=== PATIENT | female | born 1990 | race Caucasian/White ===

== ENCOUNTER 2019-04-04 12:03 | Emergency (ER) | payer SELFPAY ==
[~2019-04-04] VITALS: Ht 154 cm; Wt 120.8 kg
[~2019-04-04 12:03] MED LIST: DOXY100C2 PO; IBP800T PO
--- NOTE | 2019-04-04 12:29 | ED Abdominal Pain ---
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 Fever was 100.1 at home. States the last time she urinated she had some clots in toilet. Denies urinary symptoms but states urine is darker than normal. Sepsis Screen: No Definite Risk Source of Information: Patient Exam Limitations: No Limitations History of Present Illness Date Seen by Provider: Apr 04, 2019 Time Seen by Provider: 12:27 Initial Comments Patient is 22 weeks . This is her sixth . She has 5 children at home. She has had a care and a normal ultrasound so far. She compl ains of left lower quadrant sharp stabbing pain for the past 2-3 days. She also complains of a cough productive of yellow sputum. She vomited last night. No fevers or chills. Allergies and Home Medications Allergies Coded Allergies: No Known Drug Allergies (Unverified , 04/04/19) Patient Home Medication List Home Medication List Reviewed: Yes Review of Systems Review of Systems Constitutional: malaise Respiratory: Cough Cardiovascular: No Symptoms Reported Gastrointestinal: Vomiting Musculoskeletal: back pain Skin: no symptoms reported Psychiatric/Neurological: No Symptoms Reported All Other Systems Reviewed Negative Unless Noted: Yes Past Kxuzglg-Wnhoby-Xwfcvm Hx Patient Social History Alcohol Use: Denies Use Recreational Drug Use: No Smoking Status: Current Someday Smoker 2nd Hand Smoke Exposure: No Recent Foreign Travel: No Contact w/Someone Who Travel: No Recent Infectious Disease Expo: No Recent Hopitalizations: No Physical Abuse: No Sexual Abuse: No Mistreated: No Fear: No Seasonal Allergies Seasonal Allergies: No Past Medical History Surgeries: Yes (D & C; hernia repair; ) Section Respiratory: No Cardiac: No Neurological: No Genitourinary: No Gastrointestinal: No Musculoskeletal: No Endocrine: No HEENT: No Cancer: No Psychosocial: No Integumentary: No Physical Exam Vital Signs Vital Signs - First Documented 04/04/19 12:08 Temp 37.4 Pulse 100 Resp 16 B/P (MAP) 134/82 (99) Pulse Ox 96 Capillary Refill : Less Than 3 Seconds Height/Weight/BMI Height: '" Weight: lbs. oz. kg; 50.00 BMI Method: General Appearance: WD/WN, no apparent distress HEENT: pharynx normal Neck: supple Respiratory: lungs clear, normal breath sounds Cardiovascular: regular rate, rhythm, no edema Gastrointestinal: non tender, soft; No guarding, No rebound; other (obese gravid uterus) Extremities: non-tender, normal inspection, no pedal edema Neurologic/Psychiatric: alert, normal mood/affect Progress/Results/Core Measures Results/Orders Lab Results Laboratory Tests Test 04/04/19 12:08 04/04/19 12:41 Range/Units Urine Color YELLOW Urine Clarity CLEAR Urine pH 7.0 5-9 Urine Specific [place] 1.020 1.016-1.022 Urine Protein NEGATIVE NEGATIVE Urine Glucose (UA) NEGATIVE NEGATIVE Urine Ketones NEGATIVE NEGATIVE Urine Nitrite NEGATIVE NEGATIVE Urine Bilirubin NEGATIVE NEGATIVE Urine Urobilinogen 0.2 NORMAL MG/DL Urine Leukocyte Esterase NEGATIVE NEGATIVE Urine RBC (Auto) NEGATIVE NEGATIVE Urine RBC NONE /HPF Urine WBC 0-2 /HPF Urine Squamous Epithelial Cells 25-50 H /HPF Urine Crystals NONE /LPF Urine Bacteria TRACE /HPF Urine Casts NONE /LPF Urine Mucus NEGATIVE /LPF Urine Culture Indicated NO White Blood Count 10.3 4.3-11.0 10^3/uL Red Blood Count 3.81 L 4.35-5.85 10^6/uL Hemoglobin 10.8 L 11.5-16.0 G/DL Hematocrit 32 L 35-52 % Mean Corpuscular Volume 85 80-99 FL Mean Corpuscular Hemoglobin 28 25-34 PG Mean Corpuscular Hemoglobin Concent 33 32-36 G/DL Red Cell Distribution Width 13.8 10.0-14.5 % Platelet Count 271 130-400 10^3/uL Mean Platelet Volume 10.0 7.4-10.4 FL Neutrophils (%) (Auto) 86 H 42-75 % Lymphocytes (%) (Auto) 8 L 12-44 % Monocytes (%) (Auto) 4 0-12 % Eosinophils (%) (Auto) 2 0-10 % Basophils (%) (Auto) 0 0-10 % Neutrophils # (Auto) 8.8 H 1.8-7.8 X 10^3 Lymphocytes # (Auto) 0.8 L 1.0-4.0 X 10^3 Monocytes # (Auto) 0.4 0.0-1.0 X 10^3 Eosinophils # (Auto) 0.2 0.0-0.3 10^3/uL Basophils # (Auto) 0.0 0.0-0.1 10^3/uL Neutrophils % (Manual) 67 % Lymphocytes % (Manual) 9 % Monocytes % (Manual) 3 % Eosinophils % (Manual) 1 % Band Neutrophils 20 % Hypochromasia 1+ Blood Morphology Comment Sodium Level 135 135-145 MMOL/L Potassium Level 4.0 3.6-5.0 MMOL/L Chloride Level 102 98-107 MMOL/L Carbon Dioxide Level 19 L 21-32 MMOL/L Anion Gap 14 5-14 MMOL/L Blood Urea Nitrogen 7 7-18 MG/DL Creatinine 0.41 L 0.60-1.30 MG/DL Estimat Glomerular Filtration Rate > 60 BUN/Creatinine Ratio 17 Glucose Level 104 70-105 MG/DL Calcium Level 8.4 L 8.5-10.1 MG/DL Corrected Calcium 9.2 8.5-10.1 MG/DL Total Bilirubin 0.2 0.1-1.0 MG/DL Aspartate Amino Transf (AST/SGOT) 18 5-34 U/L Alanine Aminotransferase (ALT/SGPT) 30 0-55 U/L Alkaline Phosphatase 100 40-136 U/L Total Protein 6.1 L 6.4-8.2 GM/DL Albumin 3.0 L 3.2-4.5 GM/DL My Orders Orders - JOE SIDHU MD Urinalysis (04/04/19 12:18) Comprehensive Metabolic Panel (04/04/19 12:29) Cbc With Automated Diff (04/04/19 12:29) Manual Differential (04/04/19 12:41) Vital Signs/I&O 04/04/19 12:08 Temp 37.4 Pulse 100 Resp 16 B/P (MAP) 134/82 (99) Pulse Ox 96 Blood Pressure Mean: 99 Progress Progress Note : Time: 13:33 Progress Note Symptoms suggestive of viral illness. She may have had some vaginal bleeding. Older symptoms worsened or she develop worsening abdominal pain she may need ultrasound results available here. Advised rest FLUIDS and no intercourse. Departure Impression Primary Impression: Upper respiratory infection Additional Impression: Abdominal pain affecting Disposition: 01 HOME, SELF-CARE Condition: Stable Transfer Time Spoke to Accepting Phy: 13:34 Departure-Patient Inst. Decision time for Depature: 13:34 Referrals: JORDAN WALLS DO (PCP/Family) Primary Care Physician Patient Instructions: - The Fifth Month Add. Discharge Instructions: Rest drink plenty of fluids. No intercourse. See Dr. Walls Saturday for recheck. Return to hospital if symptoms worsen, YOU may need an ultrasound. All discharge instructions reviewed with patient and/or family. Voiced understanding. JOE SIDHU MD Apr 04, 2019 12:29
[2019-04-04 12:53] LABS: BACTERIA,URINE TRACE /HPF; BILIRUBIN,URINE NEGATIVE (NEGATIVE); CLARITY,URINE CLEAR; COLOR,URINE YELLOW; GLUCOSE, URINE (UA) NEGATIVE (NEGATIVE); KETONES,URINE NEGATIVE (NEGATIVE); LEUKOCYTE ESTERASE ,URINE NEGATIVE (NEGATIVE); NITRITE,URINE NEGATIVE (NEGATIVE); PROTEIN,URINE NEGATIVE (NEGATIVE); SQUAMOUS EPITHELIAL CELL,UR 25-50 /HPF; UROBILINOGEN,URINE 0.2 MG/DL (NORMAL); WBC,URINE 0-2 /HPF
[2019-04-04 12:54] LABS: HEMATOCRIT 32 % (35-52); HEMOGLOBIN 10.8 G/DL (11.5-16.0); LYMPHOCYTES % (AUTO) 8 % (12-44); MEAN CORPUSCULAR HEMOGLOBIN 28 PG (25-34); MEAN CORPUSCULAR HGB CONC 33 G/DL (32-36); MEAN CORPUSCULAR VOLUME 85 FL (80-99); MONOCYTES % (AUTO) 4 % (0-12); NEUTROPHILS % (AUTO) 86 % (42-75); PLATELET COUNT 271 10^3/uL (130-400); RED CELL DISTRIBUTION WIDTH 13.8 % (10.0-14.5); WHITE BLOOD COUNT 10.3 10^3/uL (4.3-11.0)
[2019-04-04 12:55] LABS: BASOPHILS % (AUTO) 0 % (0-10); EOSINOPHILS # (AUTO) 0.2 10^3/uL (0.0-0.3); EOSINOPHILS % (AUTO) 2 % (0-10); LYMPHOCYTES # (AUTO) 0.8 X 10^3 (1.0-4.0); MONOCYTES # (AUTO) 0.4 X 10^3 (0.0-1.0); NEUTROPHILS # (AUTO) 8.8 X 10^3 (1.8-7.8)
[2019-04-04 13:16] LABS: BAND NEUTROPHILS 20 %; EOSINOPHILS % (MANUAL) 1 %; LYMPHOCYTES % (MANUAL) 9 %; MONOCYTES % (MANUAL) 3 %; NEUTROPHILS % (MANUAL) 67 %
[2019-04-04 13:17] LABS: CARBON DIOXIDE 19 MMOL/L (21-32); CHLORIDE 102 MMOL/L (98-107); HYPOCHROMASIA 1+; SODIUM 135 MMOL/L (135-145)
[2019-04-04 13:18] LABS: ALANINE AMINOTRANSFERASE 30 U/L (0-55); ALKALINE PHOSPHATASE 100 U/L (40-136); BILIRUBIN,TOTAL 0.2 MG/DL (0.1-1.0); BUN/CREATININE RATIO 17; CALCIUM 8.4 MG/DL (8.5-10.1); CREATININE SERUM 0.41 MG/DL (0.60-1.30); GFR ESTIMATED > 60; GLUCOSE 104 MG/DL (70-105); TOTAL PROTEIN 6.1 GM/DL (6.4-8.2)
[2019-04-04 13:44] VITALS: BP 134/82
== END 2019-04-04 13:52 | disposition home or self-care (01) ==
LOC: ER FS 12:06 → MERGE 12:06 → ER FS 13:52
DX: O99.512 Diseases of the respiratory system complicating pregnancy, second trimester (principal); J06.9 Acute upper respiratory infection, unspecified; O26.892 Other specified pregnancy related conditions, second trimester; R10.32 Left lower quadrant pain; O99.332 Smoking (tobacco) complicating pregnancy, second trimester; F17.200 Nicotine dependence, unspecified, uncomplicated; Z3A.22 22 weeks gestation of pregnancy
CPT/HCPCS: 36415; 80053; 81000; 85007; 85027

== ENCOUNTER 2020-10-20 17:07 | Emergency (ER) | payer MEDICAID ==
[~2020-10-20] VITALS: Ht 154.9 cm; Wt 113.6 kg
--- NOTE | 2020-10-20 17:34 | ED Back Pain ---
General Chief Complaint: Back Problems Stated Complaint: UPPER BACK PAIN Source of Information: Patient History of Present Illness Date Seen by Provider: Oct 20, 2020 Time Seen by Provider: 17:09 Initial Comments 30 yo female presenting with sudden onset of pain to right posterior back/chest around scapula. She has no known injury to her chest wall. She woke up with the pain this morning. She has recently been coughing more due to some allergies and a recent sinus infection. She took a 3-day course of antibiotics from urgent care. She has had some improvement after seeing a chiropractor earlier today. They told her that a rib was out of place. After adjustment she was feeling better with no pain for 2 to 3 hours. However as she was doing her normal activities the pain came back. She is not taking any medication for it. She was concerned that there might be something going on with her lungs like a pneumonia or some other condition that was causing the pain so she came to be evaluated. She was concerned but no x-rays have been done when she saw the chiropractor. She does not feel that the rib is fractured but again wanted to have further evaluation for her symptoms. Location: Other (Right side of posterior chest between spine and scapula) Timing/Duration: 12 Hours Severity: Severe Pain/Injury Location: Chest (Right posterior chest wall) Radiation: Other (Right shoulder and upper arm) Method of Injury: Other (No known specific trauma but has been coughing more) Modifying Factors: Worse With Movement (Arm and shoulder movement on the right makes it worse); Improves With Other (Chiropractic adjustment helps for a few hours) Associated Symptoms: muscle spasms; No fever, No weakness, No numbness in legs/feet, No tingling in legs/feet, No sensory/motor loss, No lower back pain, No loss of bladder control, No loss of bowel control Allergies and Home Medications Allergies Coded Allergies: No Known Drug Allergies (Unverified , 07/31/19) Home Medications Baclofen 10 Mg Tablet, 10 MG PO TID PRN for MUSCLE SPASMS Prescribed by: MAXINE GARZA on 10/20/201831 Ibuprofen 800 Mg Tablet, 800 MG PO Q8H PRN for PAIN Prescribed by: MAXINE GARZA on 10/20/201831 Patient Home Medication List Home Medication List Reviewed: Yes Review of Systems Constitutional: chills; No diaphoresis, No dizziness, No fever, No malaise EENTM: nose congestion; No epistaxis Respiratory: cough (Smoker's cough as well as allergies); No hemoptysis, No short of breath, No stridor, No wheezing Cardiovascular: see HPI Gastrointestinal: no symptoms reported Genitourinary: no symptoms reported Musculoskeletal: see HPI Skin: No rash Psychiatric/Neurological: Denies Headache, Denies Numbness, Denies Paresthesia Past Xybggyi-Aujgpq-Vvyxmd Hx Past Med/Social Hx: Reviewed Nursing Past Med/Soc Hx Patient Social History Alcohol Use: Occasionally Uses Smoking Status: Current Everyday Smoker Type Used: Cigarettes 2nd Hand Smoke Exposure: No Recent Hopitalizations: No Seasonal Allergies Seasonal Allergies: No Past Medical History Surgeries: Yes (C/S x6, Umbilical herniorrhaphy ) Abdominal, Section, Tubal Ligation Respiratory: No Cardiac: No Neurological: No 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 oz. kg; 35.00 BMI Method: General Appearance: WD/WN, Mild Distress HEENT: PERRL/EOMI, Pharynx Normal Neck: Full Range of Motion, Normal Inspection, Non Tender, Supple Cardiovascular: Regular Rate, Rhythm, Normal Peripheral Pulses Respiratory: Lungs Clear, Normal Breath Sounds, No Accessory Muscle Use, No Respiratory Distress, Other (Tender to palpation right posterior chest wall with muscle spasms to the right paraspinal muscles between scapula and thoracic spine. Tender to palpation along the lower scapula and ribs. There is no crepitus. No rash or discoloration.) Back: No CVA Tenderness, No Vertebral Tenderness Extremity: Normal Capillary Refill, No Pedal Edema Neurologic/Psychiatric: Alert, Oriented x3, No Motor/Sensory Deficits, food service II- XII Norm as Tested Skin: Normal Color, Warm/Dry Progress/Results/Core Measures Results/Orders My Orders Orders - MAXINE GARZA MD Ketorolac Injection (Toradol Injection) (10/20/20 17:50) Orphenadrine Inj (Ed Only) (Norflex Inje (10/20/20 17:50) Chest Pa/Lat (2 View) (10/20/20 17:50) Vital Signs/I&O 10/20/20 17:12 Temp 36.8 Pulse 88 Resp 18 B/P (MAP) 134/84 (101) Pulse Ox 98 O2 Delivery Room Air Progress Progress Note #1: Progress Note With tenderness over the muscles and having muscle spasms in the right posterior chest wall this is likely musculoskeletal in nature. Also the fact that it improved after chiropractic adjustment for displaced rib and then got worse again a few hours later would also fit with the muscles spasming and pulling the rib back out of place. Her lungs are clear and there is no indication of infection. We will try Toradol and Norflex for pain and inflammation as well as spasms. Obtain a 2 view chest x-ray to evaluate the lungs and rib structure. As there is no direct trauma to the ribs and no crepitus, dedicated rib films di d not seem warranted. Differential diagnosis pneumonia, costochondritis, pleurisy, thoracic muscle strain, rib contusion, chest wall pain, pneumothorax, rib fracture. Progress Note #2: Progress Note X-rays did not demonstrate any acute cardiopulmonary process. Patient was st arting to have some improvement after shots. We will continue muscle relaxer and anti-inflammatory through pharmacy. Encouraged to alternate ice and heat. Check back with chiropractor if not improving and may need adjustment again once the medicines of help the muscles relax more. Return or seek medical care if worsening symptoms or more severe problems develop. Diagnostic Imaging Diagonstic Imaging: Xray Plain Films/CT/US/NM/MRI: chest Comments NAME: JACQUES WASHINGTON Brenden [facility] REC#: [id number] PT STATUS: REG ER : 1990 PHYSICIAN: MAXINE GARZA MD ADMIT DATE: 10/20/20/ER FS Draft Date of Exam:10/20/20 CHEST PA/LAT (2 VIEW) EXAMINATION: CHEST (PA AND LATERAL) CLINICAL INDICATION: 30-year-old female, cough. Posterior chest wall pain. COMPARISON: None. FINDINGS: Heart size and mediastinal contours are unremarkable. There is no identified pneumothorax. There is no large pleural effusion. There is no focal airspace consolidation. There is no identified displaced rib fracture. IMPRESSION: 1. No identified displaced rib fracture or acute cardiopulmonary abnormality. Dictated on workstation # [id number] Dict: 10/20/201809 Trans: 10/20/201811 CVB [id number] Interpreted by: DARRYL ALVARADO MD Electronically signed by: Departure Impression Primary Impression: Acute chest wall pain Additional Impressions: Costochondritis, acute Spasm of thoracic back muscle Contusion of rib on right side Qualified Codes: S20.211A - Contusion of right front wall of thorax, initial encounter Disposition: HOME, SELF-CARE Condition: Stable Departure-Patient Inst. Decision time for Depature: 18:32 Referrals: JORDAN HERRING DO (PCP) Primary Care Physician NO,LOCAL PHYSICIAN (Family) Primary Care Physician Patient Instructions: Costochondritis (DC), Muscle Strain (DC), RIB CONTUSION Add. Discharge Instructions: The chest wall pain seems to be from muscle spasm and rib pain. It could be from a rib being contused from coughing or being out of place. Take the medicine for muscle spasm and inflammation and if continued symptoms then you could see Chiropractor again for another adjustment and it would work better with the medicine helping to relax your chest wall muscles May alternate ice and heat to your chest wall to help with the pain and muscle spasms/inflammation as well. All discharge instructions reviewed with patient and/or family. Voiced understanding. Scripts Ibuprofen (Ibuprofen) 800 Mg Tablet 800 MG PO Q8H PRN for PAIN for 10 Days, #30 TAB 0 Refills Prov: MAXINE GARZA MD 10/20/20 Baclofen (Baclofen) 10 Mg Tablet 10 MG PO TID PRN for MUSCLE SPASMS for 7 Days, #21 TAB 0 Refills Prov: MAXINE GARZA MD 10/20/20 Images Torso/Trunk 1 - Muscle Spams, Tenderness (Tenderness with muscle spasms to the right of thoracic spine between spine and scapula. Also tender with muscle spasms and ri b pain beneath the scapula on the right side. There is no crepitus or discoloration) MAXINE GARZA MD Oct 20, 2020 17:34
[2020-10-20] MEDS ORDERED: ORPHENADRINE 60 MG/2 ML (NORFLEX) AMP (ED ONLY) IM STA (17:50)
[2020-10-20] MEDS ORDERED: KETOROLAC 60 MG/2 ML VIAL IM STA (17:50)
--- NOTE | 2020-10-20 18:13 | Diagnostic Imaging Report ---
EXAMINATION: CHEST (PA AND LATERAL) CLINICAL INDICATION: 30-year-old female, cough. Posterior chest wall pain. COMPARISON: None. FINDINGS: Heart size and mediastinal contours are unremarkable. There is no identified pneumothorax. There is no large pleural effusion. There is no focal airspace consolidation. There is no identified displaced rib fracture. IMPRESSION: 1. No identified displaced rib fracture or acute cardiopulmonary abnormality. Dictated by: Dictated on workstation # [id number]
[2020-10-20] MEDS ORDERED: IBUP-1780 PO (18:32)
[2020-10-20] MEDS ORDERED: BACL10TA PO (18:32)
[2020-10-20 18:40] VITALS: BP 134/84
== END 2020-10-20 18:40 | disposition home or self-care (01) ==
LOC: EDUNIT# 17:07 → MERGE 17:09 → ER FS 17:09
DX: S20.211A Contusion of right front wall of thorax, initial encounter (principal); M94.0 Chondrocostal junction syndrome [Tietze]; M62.830 Muscle spasm of back; J41.0 Simple chronic bronchitis; F17.210 Nicotine dependence, cigarettes, uncomplicated; Z79.2 Long term (current) use of antibiotics; X58.XXXA Exposure to other specified factors, initial encounter
CPT/HCPCS: 71046

== ENCOUNTER 2020-10-29 17:12 | Emergency (ER) | payer MEDICAID ==
[~2020-10-29] VITALS: Ht 154 cm; Wt 116.0 kg
[~2020-10-29 17:12] MED LIST changes: +BACL10TA PO; +IBUP-1780 PO
[2020-10-29 17:23] VITALS: BP 118/69
[2020-10-29] MEDS ORDERED: ACHD5005 PO (17:39)
[2020-10-29] MEDS ORDERED: AMOX875T2 PO (17:39)
--- NOTE | 2020-10-29 17:39 | ED EENT ---
History of Present Illness General Chief Complaint: Dental Problems/Pain Stated Complaint: TOOTH PAIN History of Present Illness Date Seen by Provider: Oct 29, 2020 Time Seen by Provider: 17:38 Initial Comments Patient presenting to emergency department for evaluation of right mandibular molar pain that has been an ongoing issue and she was on antibiotics in September a nd is supposed to get her teeth fixed in 2 days. She reported that they are likely going to pull them. Patient denies facial swelling fevers chills nausea vomiting or other systemic symptoms. She reportedly had a positive Covid test this week after receiving a Covid vaccine 1 month ago and she said the dentist office is not wanting to see her in 2 days to do the extraction. She is in no obvious distress with normal vital signs. Allergies and Home Medications Allergies Coded Allergies: No Known Drug Allergies (Unverified , 09/30/12) Home Medications Amoxicillin 875 Mg Tablet, 875 MG PO BID Prescribed by: YANET SANTACRUZ on 10/29/20 173 Baclofen 10 Mg Tablet, 10 MG PO TID PRN for MUSCLE SPASMS Prescribed by: MAXINE GARZA on 10/20/20 183 Doxycycline Hyclate 100 Mg Capsule, 1 EACH PO BID Prescribed by: RIAN GLASS on 09/30/12 1459 Hydrocodone/Acetaminophen 1 Each Tablet, 1 TAB PO Q6H PRN for PAIN-MODERATE (5- 7) Prescribed by: YANET SANTACRUZ on 10/29/20 1739 Ibuprofen 800 Mg Tab, 800 MG PO Q6HR, (Reported) Ibuprofen 800 Mg Tablet, 800 MG PO Q8H PRN for PAIN Prescribed by: MAXINE GARZA on 10/20/20 183 Patient Home Medication List Home Medication List Reviewed: Yes Review of Systems Review of Systems Constitutional: no symptoms reported Mouth: pain Throat: no symptoms reported Respiratory: no symptoms reported Gastrointestinal: no symptoms reported Past Vjjcsyd-Uwzkbu-Ykimoq Hx Patient Social History Alcohol Use: Denies Use Smoking Status: Current Everyday Smoker Type Used: Cigarettes 2nd Hand Smoke Exposure: No Recent Hopitalizations: No Immunizations Up To Date Date of Influenza Vaccine: Jun 23, 2012 Seasonal Allergies Seasonal Allergies: No Past Medical History Surgeries: Yes (C/S x6, Umbilical herniorrhaphy ) Abdominal, Section, Tubal Ligation Respiratory: No Cardiac: No Neurological: No Reproductive Disorders: Yes (2005 abnormal pap ) 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 oz. kg; 47.00 BMI Method: General Appearance: WD/WN, no apparent distress Mouth/Throat: other (To posterior mandibular molars are in quite bad shape with caries and what appears to be exposed pulp with periapical inflammation but no abscess detected) Cardiovascular: regular rate, rhythm Respiratory: no respiratory distress Progress/Results/Core Measures Results/Orders My Orders Orders - YANET SANTACRUZ DO Hydrocodone/Apap 5/325 Tablet (Lortab 5 (10/29/20 17:45) Progress Progress Note : Progress Note Patient does have a polyp and pain so I will start her on amoxicillin prescribed her medications for pain and recommended continuing ibuprofen and then trying to get a negative Covid test today or tomorrow so that she can get her dental procedure on Saturday. Patient aware and agreeable with plan and verbalized understanding of the above instructions. Departure Impression Primary Impression: Dental caries Disposition: HOME, SELF-CARE Condition: Stable Departure-Patient Inst. Referrals: SELF,DARIA LEVINE (PCP/Family) Primary Care Physician Patient Instructions: Dental Pain (DC) Scripts Hydrocodone/Acetaminophen (Hydrocodone-Acetamin 5-325 mg) 1 Each Tablet 1 TAB PO Q6H PRN for PAIN-MODERATE (5-7), #12 TAB Prov: YANET SANTACRUZ DO 10/29/20 Amoxicillin (Amoxicillin) 875 Mg Tablet 875 MG PO BID for 7 Days, TAB Prov: YANET SANTACRUZ DO 10/29/20 YANET SANTACRUZ DO Oct 29, 2020 17:39
[2020-10-29] MEDS ORDERED: HYDROcodone/APAP 5 MG/325 MG (LORTAB) TAB PO ONE (17:45)
== END 2020-10-29 17:45 | disposition home or self-care (01) ==
LOC: EDUNIT# 17:12 → ER FS 17:15
DX: K02.9 Dental caries, unspecified (principal); F17.210 Nicotine dependence, cigarettes, uncomplicated
CPT/HCPCS: 99283

== ENCOUNTER 2021-03-18 15:56 | Emergency (ER) | payer MEDICAID ==
[~2021-03-18 15:56] MED LIST changes: +ACHD5005 PO; +AMOX875T2 PO
--- OUTSIDE RECORDS SUMMARY | 2021-03-18 16:00 | XMS REPORT ---
Author Author 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 Name Role Phone Migration, Doctor Unavailable Unavailable PROBLEMS Type Condition ICD9-CM Code RCF12-AZ Code Onset Dates Condition S tatus W/U Status Risk SNOMED Code Notes Problem Seasonal allergies J30.2 Active confirmed 4 20124137 Problem Adult BMI 45.0-49.9 kg/sq m Z68.42 Active confirmed 387350475 Problem Morbid (severe) obesity due to excess calories E66 .01 Active confirmed 302799082 ALLERGIES No Known Allergies ENCOUNTERS from 1990 to 2021-01-27 Encounter Location Date Provider Diagnosis [facility] [address] [facility] [id number] [place] [address] Oct, Doctor Migration IMMUNIZATIONS Vaccine Route Administration Date Status COVID-19 Pfizer (history) Unknown Sep 06, 2020 Admini stered COVID-19 Pfizer (history) Unknown Aug 16, 2020 Admini stered PRIVATE FLULAVAL QUAD 0.5ML (6 MO AND UP) 2019 IM Intramuscular September 30, 2020 Administered TORADOL (IM) 30 MG/ML (UP TO 15 MG) IM Intramuscular Aug 30 Administered SOCIAL HISTORY Sex Assigned At : Social History Observation Description Sex Assigned At Unknown Cessation Question Answer Notes Date Tobacco Cessation Provided: 06/20/2020 PHQ2 Question Answer Notes In the last 2 weeks, how often have you had little interest or pleasure in doing things? Not at all In the last 2 weeks, how often have you been feeling down, depressed, or hopeless? Not at all Total PHQ2 Score 0 Tobacco use other than smoking: Question Answer Notes Are you an other tobacco user? No REASON FOR REFERRAL No Information VITAL SIGNS No information MEDICATIONS Medication SIG (Take, Route, Frequency, Duration) Notes Start Da te End Date Status Albuterol Sulfate HFA 108 (90 Base) MCG/ACT 2 puff as needed Inhalation every 6 hrs Sep, Active Phentermine HCl 37.5 mg 1 tablet Orally Once a day for 30 days Dec, Active PROCEDURES No Information RESULTS No Results REASON FOR VISIT EMR-[facility] MEDICAL (GENERAL) HISTORY Type Description Date Medical History Obesity Surgical History X6 Surgical History Hernia replacement Surgical History D&C Surgical History cervix biopsy Hospitalization History C-Sections x6 Goals Section No Information Health Concerns No Information MEDICAL EQUIPMENT No Information MENTAL STATUS No Information FUNCTIONAL STATUS No Information ASSESSMENTS No Information PLAN OF TREATMENT Medication Medication Name Sig Start Date Stop Date Phentermine HCl 37.5 mg 1 tablet Orally Once a day for 30 days 1 7 Dec, 2020 Next Appt Details Provider Name:DARIA MARCOS, 2021-02-06 10:30:00 AM, [address] [place] [address], [id number], [place], [address], Insurance Providers Payer Name Payer Address Payer Phone Insured Name Patient Relati onship to Insured Coverage Start Date Coverage End Date [employer] [facility] [address] [address] [facility] [phone] Carmen Thomas 2019
--- NOTE | 2021-03-18 16:08 | ED Cough/URI ---
General Stated Complaint: EXPOSURE;WEAK;SOB Allergies and Home Medications Allergies Coded Allergies: No Known Drug Allergies (Unverified , 09/30/12) Home Medications Amoxicillin 875 Mg Tablet, 875 MG PO BID Prescribed by: YANET SANTACRUZ on 10/29/20 173 Baclofen 10 Mg Tablet, 10 MG PO TID PRN for MUSCLE SPASMS Prescribed by: MAXINE GARZA on 10/20/20 183 Doxycycline Hyclate 100 Mg Capsule, 1 EACH PO BID Prescribed by: RIAN GLASS on 09/30/12 1459 Hydrocodone/Acetaminophen 1 Each Tablet, 1 TAB PO Q6H PRN for PAIN-MODERATE (5- 7) Prescribed by: YANET SANTACRUZ on 10/29/20 173 Ibuprofen 800 Mg Tab, 800 MG PO Q6HR, (Reported) Ibuprofen 800 Mg Tablet, 800 MG PO Q8H PRN for PAIN Prescribed by: MAXINE GARZA on 10/20/201831 Past Qemjvag-Ncnfsw-Cxuqxs Hx Seasonal Allergies Seasonal Allergies: No Past Medical History Surgeries: Yes (C/S x6, Umbilical herniorrhaphy ) Abdominal, Section, Tubal Ligation Respiratory: No Cardiac: No Neurological: No Reproductive Disorders: Yes (2005 abnormal pap ) 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 oz. kg; 48.00 BMI Method: Progress/Results/Core Measures Suspected Sepsis SIRS Temperature: Pulse: Respiratory Rate: Blood Pressure / Mean: Results/Orders Vital Signs/I&O Capillary Refill : Departure Departure-Patient Inst. Referrals: SELF,DARIA LEVINE (PCP/Family) Primary Care Physician NAPOLEON VIRAMONTES DO Mar 18, 2021 16:08
== END 2021-03-18 16:10 | disposition left against medical advice (07) ==
LOC: EDUNIT# 15:56 → ER FS 15:57
DX: R53.1 Weakness (principal); R06.02 Shortness of breath

== ENCOUNTER 2021-04-11 16:04 | Emergency (ER) | payer MEDICAID ==
[~2021-04-11] VITALS: Ht 154.9 cm; Wt 114.0 kg
--- NOTE | 2021-04-11 16:24 | ED General ---
General Chief Complaint: Upper Extremity Stated Complaint: LT ARM PAIN,CP Source of Information: Patient History of Present Illness Date Seen by Provider: Apr 11, 2021 Time Seen by Provider: 16:06 Initial Comments 30 yo female presenting with complaints of tenderness to left arm for last few weeks. Usually it goes away but today it has lasted all day. She has not taken anything for the pain. There has been no trauma to her arm. She reports having Covid about a month ago. She was concerned because she had Pfizer vaccine in left arm back in July. She has mild tightness in her chest. She has no nausea, vomiting, fever, chills, cough, numbness in arm. Associated Systoms: No Chest Pain, No Cough, No Diaphoresis, No Fever/Chills, No Headaches, No Loss of Appetite, No Malaise, No Nausea/Vomiting, No Rash, No Seizure; Shortness of Air; No Syncope, No Weakness Allergies and Home Medications Allergies Coded Allergies: No Known Drug Allergies (Unverified , 09/30/12) Patient Home Medication List Home Medication List Reviewed: Yes Amoxicillin (Amoxicillin) 875 Mg Tablet, 875 MG PO BID Prescribed by: YANET SANTACRUZ on 10/29/20 173 Baclofen (Baclofen) 10 Mg Tablet, 10 MG PO TID PRN for MUSCLE SPASMS Prescribed by: MAXINE GARZA on 10/20/20 183 Baclofen (Baclofen) 10 Mg Tablet, 10 MG PO TID PRN for arm pain/muscle spasm Prescribed by: MAXINE GARZA on 04/11/21 1752 Doxycycline Hyclate (Doxycycline Hyclate) 100 Mg Capsule, 1 EACH PO BID Prescribed by: RIAN GLASS on 09/30/12 1459 Hydrocodone/Acetaminophen (Hydrocodone-Acetamin 5-325 mg) 1 Each Tablet, 1 TAB PO Q6H PRN for PAIN-MODERATE (5-7) Prescribed by: YANET SANTACRUZ on 10/29/20 173 Ibuprofen (Motrin) 800 Mg Tab, 800 MG PO Q6HR, (Reported) Entered as Reported by: DIYA ROBBINS on 09/30/12 1317 Ibuprofen (Ibuprofen) 800 Mg Tablet, 800 MG PO Q8H PRN for PAIN Prescribed by: MAXINE GARZA on 10/20/20 183 Ibuprofen (Ibuprofen) 800 Mg Tablet, 800 MG PO Q8H PRN for PAIN Prescribed by: MAXINE GARZA on 04/11/21 8615 Review of Systems Review of Systems Constitutional: No chills, No fever EENTM: no symptoms reported Respiratory: see HPI Cardiovascular: no symptoms reported Gastrointestinal: no symptoms reported Genitourinary: no symptoms reported Musculoskeletal: see HPI, other (tender to palpation left upper arm) Skin: No rash Psychiatric/Neurological: Denies Numbness, Denies Paresthesia Hematologic/Lymphatic: Denies Blood Clots Past Ljidnei-Rlzykj-Wrctjp Hx Seasonal Allergies Seasonal Allergies: No Past Medical History Surgeries: Yes (C/S x6, Umbilical herniorrhaphy ) Abdominal, Section, Tubal Ligation Respiratory: No Cardiac: No Neurological: No Reproductive Disorders: Yes (2005 abnormal pap ) 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 oz. kg; 48.00 BMI Method: General Appearance: No Apparent Distress, Anxious, Obese Neck: Full Range of Motion, Normal Inspection, Non Tender, Supple Respiratory: Chest Non Tender, Lungs Clear, Normal Breath Sounds Cardiovascular: Regular Rate, Rhythm, Normal Peripheral Pulses Gastrointestinal: Normal Bowel Sounds, No Pulsatile Mass, Non Tender, Soft Extremity: Normal Capillary Refill, No Pedal Edema, Other (tender to palpation of left upper arm. no crepitus. 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 Norm as Tested Skin: Normal Color, Warm/Dry Progress/Results/Core Measures Suspected Sepsis SIRS Temperature: Pulse: Respiratory Rate: Laboratory Tests 04/11/21 16:25: White Blood Count 10.4 Blood Pressure / Mean: Laboratory Tests 04/11/21 16:25: Creatinine 0.64, INR Comment 0.9, Platelet Count 362, Total Bilirubin 0.3 Results/Orders Lab Results Laboratory Tests Test 04/11/21 16:25 Range/Units White Blood Count 10.4 4.3-11.0 10^3/uL Red Blood Count 4.64 3.80-5.11 10^6/uL Hemoglobin 12.7 11.5-16.0 g/dL Hematocrit 38 35-52 % Mean Corpuscular Volume 83 80-99 fL Mean Corpuscular Hemoglobin 27 25-34 pg Mean Corpuscular Hemoglobin Concent 33 32-36 g/dL Red Cell Distribution Width 13.9 10.0-14.5 % Platelet Count 362 130-400 10^3/uL Mean Platelet Volume 10.2 9.0-12.2 fL Immature Granulocyte % (Auto) 0 % Neutrophils (%) (Auto) 67 42-75 % Lymphocytes (%) (Auto) 23 12-44 % Monocytes (%) (Auto) 6 0-12 % Eosinophils (%) (Auto) 2 0-10 % Basophils (%) (Auto) 1 0-10 % Neutrophils # (Auto) 7.0 1.8-7.8 X 10^3 Lymphocytes # (Auto) 2.4 1.0-4.0 X 10^3 Monocytes # (Auto) 0.7 0.0-1.0 X 10^3 Eosinophils # (Auto) 0.3 0.0-0.3 10^3/uL Basophils # (Auto) 0.1 0.0-0.1 10^3/uL Immature Granulocyte # (Auto) 0.0 0.0-0.1 10^3/uL Prothrombin Time 12.7 12.2-14.7 SEC INR Comment 0.9 0.8-1.4 Activated Partial Thromboplast Time 31 24-35 SEC D-Dimer 0.17 0.00-0.49 UG/ML Sodium Level 139 135-145 MMOL/L Potassium Level 3.8 3.6-5.0 MMOL/L Chloride Level 104 98-107 MMOL/L Carbon Dioxide Level 25 21-32 MMOL/L Anion Gap 10 5-14 MMOL/L Blood Urea Nitrogen 10 7-18 MG/DL Creatinine 0.64 0.60-1.30 MG/DL Estimat Glomerular Filtration Rate 108 BUN/Creatinine Ratio 16 Glucose Level 103 70-105 MG/DL Calcium Level 9.1 8.5-10.1 MG/DL Corrected Calcium 9.0 8.5-10.1 MG/DL Magnesium Level 1.8 1.6-2.4 MG/DL Total Bilirubin 0.3 0.1-1.0 MG/DL Aspartate Amino Transf (AST/SGOT) 36 H 5-34 U/L Alanine Aminotransferase (ALT/SGPT) 41 0-55 U/L Alkaline Phosphatase 72 40-136 U/L Troponin I < 0.30 <0.30 NG/ML Pro-B-Type Natriuretic Peptide 56.4 <75.0 PG/ML Total Protein 7.1 6.4-8.2 GM/DL Albumin 4.1 3.2-4.5 GM/DL My Orders Orders - MAXINE GARZA MD Cbc With Automated Diff (04/11/21 16:16) Magnesium (04/11/21 16:16) Comprehensive Metabolic Panel (04/11/21 16:16) Protime With Inr (04/11/21 16:16) Partial Thromboplastin Time (04/11/21 16:16) Monitor-Rhythm Ecg Trace Only (04/11/21 16:16) Ed Iv/Invasive Line Start (04/11/21 16:16) Troponin I Fs (04/11/21 16:16) Probnp Fs (04/11/21 16:16) Fibrin Degradation Products (04/11/21 16:16) Chest Pa/Lat (2 View) (04/11/21 16:16) Ketorolac Injection (Toradol Injection) (04/11/21 16:30) Orphenadrine Inj (Ed Only) (Norflex Inje (04/11/21 17:50) Medications Given in ED Current Medications Medications Dose Ordered Sig/Sher Route Start Time Stop Time Status Last Admin Dose Admin Ketorolac Tromethamine 30 mg ONCE ONCE IVP 04/11/21 16:30 04/11/21 16:31 DC 04/11/21 16:26 30 MG Vital Signs/I&O 04/11/21 04/11/21 16:07 18:06 Temp 36.7 36.5 Pulse 92 81 Resp 20 18 B/P (MAP) 145/112 (123) 123/77 Pulse Ox 98 97 O2 Delivery Room Air Room Air Capillary Refill : Progress Note #1: Progress Note Check basic labs as well as CXR. With recent COVID infection will check D dimer to see if that is elevated if she might have risk for DVT. Try Toradol for pain. Progress Note #2: Progress Note labs and xrays all without acute significant abnormality. DDimer negative for screening in terms of blood clot to cause her arm pain as well. Will have her try ice alternating with heat, NSAIDS and check with [facility] for continued concerns in case they need to do ultrasound or MRI to look at nerve issue or soft tissue inflammation. Will also try muscle relaxer and pt plans to see her Chiropractor to see if might be pinched nerve since involves shoulder and upper arm. She continues to deny any trauma or injury to have caused her symptoms. Diagnostic Imaging Diagonstic Imaging: Xray Plain Films/CT/US/NM/MRI: chest Comments [facility], [place] NAME: JACQU[facility] REC#: [id number] PT STATUS: REG ER : 1990 PHYSICIAN: MAXINE GARZA MD ADMIT DATE: 04/11/21/ER FS Signed Date of Exam:04/11/21 CHEST PA/LAT (2 VIEW) EXAMINATION: Chest, two views. HISTORY: Chest tightness and shortness of breath. COMPARISON: 10/20/2020. FINDINGS: The lungs are clear without edema or pneumonia. No pleural effusion or pneumothorax. Heart size is normal. IMPRESSION: 1. Clear lungs. Dictated by: Dictated on workstation # [id number] Dict: 04/11/[id number] Trans: 04/11/21 165 [id number] Interpreted by: NESSA BREWER MD Electronically signed by: NESSA BREWER MD 04/11/21 1659 Reviewed: Reviewed by Me Departure Impression Primary Impression: Left upper arm pain Additional Impression: Shortness of breath Disposition: 01 HOME, SELF-CARE Condition: Stable Departure-Patient Inst. Decision time for Depature: 17:51 Referrals: DARIA MARCOS MD (PCP/Family) Primary Care Physician Patient Instructions: Shortness of Breath, Adult ED, Muscle and Bone Pain (DC) Add. Discharge Instructions: No sign of blood clot, infection, pneumonia, heart attack on tests today. Try alternating ice and heat to your arm to help with symptoms. Try NSAIDS such as Ibuprofen or Naproxen for pain if needed. Check back with clinic for continued concerns. All discharge instructions reviewed with patient and/or family. Voiced understanding. Scripts Ibuprofen (Ibuprofen) 800 Mg Tablet 800 MG PO Q8H PRN for PAIN for 10 Days, #30 TAB 0 Refills Prov: MAXINE GARZA MD 04/11/21 Baclofen (Baclofen) 10 Mg Tablet 10 MG PO TID PRN for arm pain/muscle spasm for 7 Days, #21 TAB 0 Refills Prov: MAXINE GARZA MD 04/11/21 MAXINE GARZA MD Apr 11, 2021 16:24
[2021-04-11] MEDS ORDERED: KETOROLAC 30 MG/ML VIAL IVP ONE (16:30)
[2021-04-11 16:45] LABS: HEMATOCRIT 38 % (35-52); HEMOGLOBIN 12.7 g/dL (11.5-16.0); MEAN CORPUSCULAR HEMOGLOBIN 27 pg (25-34); WHITE BLOOD COUNT 10.4 10^3/uL (4.3-11.0)
[2021-04-11 16:46] LABS: BASOPHILS # (AUTO) 0.1 10^3/uL (0.0-0.1); BASOPHILS % (AUTO) 1 % (0-10); EOSINOPHILS # (AUTO) 0.3 10^3/uL (0.0-0.3); EOSINOPHILS % (AUTO) 2 % (0-10); LYMPHOCYTES # (AUTO) 2.4 X 10^3 (1.0-4.0); LYMPHOCYTES % (AUTO) 23 % (12-44); MEAN CORPUSCULAR HGB CONC 33 g/dL (32-36); MEAN CORPUSCULAR VOLUME 83 fL (80-99); MEAN PLATELET VOLUME 10.2 fL (9.0-12.2); MONOCYTES # (AUTO) 0.7 X 10^3 (0.0-1.0); MONOCYTES % (AUTO) 6 % (0-12); NEUTROPHILS % (AUTO) 67 % (42-75); PLATELET COUNT 362 10^3/uL (130-400)
--- NOTE | 2021-04-11 16:54 | Diagnostic Imaging Report ---
EXAMINATION: Chest, two views. HISTORY: Chest tightness and shortness of breath. COMPARISON: 10/20/2020. FINDINGS: The lungs are clear without edema or pneumonia. No pleural effusion or pneumothorax. Heart size is normal. IMPRESSION: 1. Clear lungs. Dictated by: Dictated on workstation # [id number]
[2021-04-11 17:15] LABS: POTASSIUM 3.8 MMOL/L (3.6-5.0)
[2021-04-11 17:16] LABS: CREATININE SERUM 0.64 MG/DL (0.60-1.30)
[2021-04-11 17:17] LABS: BILIRUBIN,TOTAL 0.3 MG/DL (0.1-1.0); CALCIUM 9.1 MG/DL (8.5-10.1); MAGNESIUM 1.8 MG/DL (1.6-2.4)
[2021-04-11 17:19] LABS: ALBUMIN 4.1 GM/DL (3.2-4.5); TOTAL PROTEIN 7.1 GM/DL (6.4-8.2)
[2021-04-11 17:28] LABS: FIBRIN DEGRADATION PRODUCTS 0.17 UG/ML (0.00-0.49); INR 0.9 (0.8-1.4); PROTHROMBIN TIME PATIENT 12.7 SEC (12.2-14.7)
[2021-04-11] MEDS ORDERED: ORPHENADRINE 60 MG/2 ML (NORFLEX) AMP (ED ONLY) IVP STA (17:50)
[2021-04-11] MEDS ORDERED: BACL10TA PO (17:52)
[2021-04-11] MEDS ORDERED: IBUP-1780 PO (17:52)
[2021-04-11 18:06] VITALS: BP 123/77
== END 2021-04-11 18:06 | disposition home or self-care (01) ==
LOC: EDUNIT# 16:04 → ER FS 16:06
DX: M79.602 Pain in left arm (principal); R06.02 Shortness of breath; E66.9 Obesity, unspecified; Z68.42 Body mass index [BMI] 45.0-49.9, adult; Z86.16 Personal history of COVID-19
CPT/HCPCS: 36415; 71046; 80053; 83735; 83880; 84484; 85025; 85379; 85610; 85730; 93041

== ENCOUNTER 2021-07-08 16:57 | Emergency (ER) | payer MEDICAID ==
[~2021-07-08] VITALS: Ht 162 cm; Wt 125.0 kg
--- NOTE | 2021-07-08 17:15 | ED General ---
General Chief Complaint: Upper Extremity Stated Complaint: COVID POSITIVE,LIGHTHEADED Source of Information: Patient Exam Limitations: No Limitations History of Present Illness Date Seen by Provider: Jul 08, 2021 Time Seen by Provider: 17:00 Initial Comments 30-year-old female with no significant past medical history coming in. She is feeling slightly lightheaded. Tested positive for COVID on Saturday07/03/21. Symptoms started the same day and were fever, cough, intermittent SOB, nausea without vomiting. Given prednisone to take and also takes meds for anxiety. Later questioning showed that the patient was prescribed albuterol when she was diagnosed with COVID. She says she has been using it regularly despite not really feeling short of breath. She says she used that shortly before feeling lightheaded. Allergies and Home Medications Allergies Coded Allergies: No Known Drug Allergies (Unverified , 09/30/12) Patient Home Medication List Home Medication List Reviewed: Yes Amoxicillin (Amoxicillin) 875 Mg Tablet, 875 MG PO BID Prescribed by: YANET SANTACRUZ on 10/29/20 173 Baclofen (Baclofen) 10 Mg Tablet, 10 MG PO TID PRN for MUSCLE SPASMS Prescribed by: MAXINE GARZA on 10/20/20 183 Baclofen (Baclofen) 10 Mg Tablet, 10 MG PO TID PRN for arm pain/muscle spasm Prescribed by: MAXINE GARZA on 04/11/21 175 Doxycycline Hyclate (Doxycycline Hyclate) 100 Mg Capsule, 1 EACH PO BID Prescribed by: RIAN GLASS on 09/30/12 1459 Hydrocodone/Acetaminophen (Hydrocodone-Acetamin 5-325 mg) 1 Each Tablet, 1 TAB PO Q6H PRN for PAIN-MODERATE (5-7) Prescribed by: YANET SANTACRUZ on 10/29/20 173 Ibuprofen (Motrin) 800 Mg Tab, 800 MG PO Q6HR, (Reported) Entered as Reported by: DIYA ROBBINS on 09/30/12 1317 Ibuprofen (Ibuprofen) 800 Mg Tablet, 800 MG PO Q8H PRN for PAIN Prescribed by: MAXINE GARZA on 10/20/20 183 Ibuprofen (Ibuprofen) 800 Mg Tablet, 800 MG PO Q8H PRN for PAIN Prescribed by: MAXINE GARZA on 04/11/21 175 Review of Systems Review of Systems Constitutional: No chills, No fever EENTM: No blurred vision Respiratory: cough; No short of breath Cardiovascular: No chest pain, No palpitations, No syncope Gastrointestinal: no symptoms reported Genitourinary: no symptoms reported Musculoskeletal: no symptoms reported Skin: no symptoms reported Psychiatric/Neurological: Other (light headed) Hematologic/Lymphatic: No Symptoms Reported Immunological/Allergic: no symptoms reported All Other Systems Reviewed Negative Unless Noted: Yes Past Ummdnvj-Teqdix-Eprusj Hx Patient Social History Tobacco Use?: No Use of E-Cig and/or Vaping dev: No Substance use?: No Alcohol Use?: No Pt feels they are or have been: No Immunizations Up To Date First/Initial COVID19 Vaccinat: 2020 Second COVID19 Vaccination Chandra: 2020 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: [employer] Seasonal Allergies Seasonal Allergies: No Past Medical History Surgeries: Yes (C/S x6, Umbilical herniorrhaphy ) Abdominal, Section, Tubal Ligation Respiratory: No Cardiac: No Neurological: No Reproductive Disorders: Yes (2005 abnormal pap ) 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 oz. kg; 47.00 BMI Method: General Appearance: No Apparent Distress, WD/WN Eyes: Bilateral Eye Normal Inspection, Bilateral Eye PERRL HEENT: PERRL/EOMI, Normal ENT Inspection, Pharynx Normal Neck: Full Range of Motion, Normal Inspection, Non Tender, Supple Respiratory: Chest Non Tender, Lungs Clear, Normal Breath Sounds, No Accessory Muscle Use, No Respiratory Distress Cardiovascular: Regular Rate, Rhythm, No Edema, Normal Peripheral Pulses Gastrointestinal: Normal Bowel Sounds, Non Tender, Soft; No Distended, No Guarding Back: Normal Inspection, No CVA Tenderness, No Vertebral Tenderness Extremity: Normal Capillary Refill, Normal Inspection, Normal Range of Motion, Non Tender, No Calf Tenderness, No Pedal Edema Neurologic/Psychiatric: Alert, Oriented x3, No Motor/Sensory Deficits, Normal Mood/Affect Skin: Normal Color, Warm/Dry Lymphatic: No Adenopathy Progress/Results/Core Measures Suspected Sepsis SIRS Temperature: Pulse: Respiratory Rate: Blood Pressure / Mean: Results/Orders Vital Signs/I&O 07/08/21 07/08/21 17:09 17:30 Temp 36.2 36.2 Pulse 80 80 Resp 20 20 B/P (MAP) 128/84 (99) 128/84 Pulse Ox 98 98 O2 Delivery Room Air Room Air Capillary Refill : Progress Note : Progress Note 30-year-old female with above history coming in feeling a little lightheaded. ABCs were intact and vitals were stable on presentation. Specifically, she is not tachycardic and she has good oxygen saturation even with ambulation around the room. Heart and lung sounds normal. She is very well-appearing. Not currently feeling lightheaded. Tolerating p.o. Likely symptoms are related to COVID, however they seem to be mild. I truly believe her symptoms could be related to the albuterol use that she is not normally prescribed. She does have the Regeneron therapy scheduled for Saturday which I think she should keep. I believe she is stable for discharge with outpatient follow-up. She was sent home with strict return precautions. Departure Impression Primary Impression: COVID-19 Disposition: 01 HOME, SELF-CARE Condition: Stable Departure-Patient Inst. Decision time for Depature: 17:31 Referrals: DARIA MARCOS MD (PCP/Family) Primary Care Physician Patient Instructions: COVID-19 ED Add. Discharge Instructions: You were seen in the emergency department because you are feeling lightheaded and you have COVID. The good news is your physical exam is reassuring, your lungs sound clear, and your vitals look very good on the monitor. Continue to drink plenty of fluids and take Tylenol if you are having any type of body aches, fever, chills. I think it would still be good for you to get the Regeneron therapy which is the antibody therapy on Saturday. HERON BRAMBILA MD Jul 08, 2021 17:15
[2021-07-08 17:30] VITALS: BP 128/84
== END 2021-07-08 17:34 | disposition home or self-care (01) ==
LOC: EDUNIT# 16:57 → ER FS 16:59
DX: U07.1 COVID-19 (principal)
CPT/HCPCS: 99281

== ENCOUNTER 2021-09-17 17:11 | Emergency (ER) | payer MEDICAID ==
[~2021-09-17] VITALS: Ht 154 cm; Wt 115.0 kg
[2021-09-17 17:18] VITALS: BP 157/89
[2021-09-17] MEDS ORDERED: IBUPROFEN 600 MG (MOTRIN) TAB PO ONE (17:30)
[2021-09-17] MEDS ORDERED: AUGMENTIN 875 MG TAB (AMOXICILLIN/CLAVULANATE) PO SCH (17:30)
[2021-09-17] MEDS ORDERED: PENI500T PO (17:38)
[2021-09-17] MEDS ORDERED: TRAM50TA3 PO (17:38)
--- NOTE | 2021-09-17 17:38 | ED EENT ---
History of Present Illness General Chief Complaint: Dental Problems/Pain Stated Complaint: DENTAL PAIN Nursing Triage Note: Patient has ambulated to ER 2 with cc of lower left side wisdom tooth pain. She reports the pain started yesterday with some swelling. Patient did take tyelenol and ibuprofen yesterday. She has not taken any pain medications today. She reports problems with her wisdom teeth in the past and she is to have to wisdom teeth removed but she does not have the money for the surgery. 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 Patient has not had opportunity to see a dentist due to lack of resources. No dysphonia drooling or dysphagia. No main medication today. Timing/Duration: gradual Severity: moderate Location: facial, dental, other Prearrival Treatment: other Associated Symptoms: other Allergies and Home Medications Allergies Coded Allergies: No Known Drug Allergies (Unverified , 09/30/12) Patient Home Medication List Home Medication List Reviewed: Yes Amoxicillin (Amoxicillin) 875 Mg Tablet, 875 MG PO BID Prescribed by: YANET SANTACRUZ on 10/29/20 173 Baclofen (Baclofen) 10 Mg Tablet, 10 MG PO TID PRN for MUSCLE SPASMS Prescribed by: MAXINE GARZA on 10/20/20 1832 Baclofen (Baclofen) 10 Mg Tablet, 10 MG PO TID PRN for arm pain/muscle spasm Prescribed by: MAXINE GARZA on 04/11/21 175 Doxycycline Hyclate (Doxycycline Hyclate) 100 Mg Capsule, 1 EACH PO BID Prescribed by: RIAN GLASS on 09/30/12 1459 Hydrocodone/Acetaminophen (Hydrocodone-Acetamin 5-325 mg) 1 Each Tablet, 1 TAB PO Q6H PRN for PAIN-MODERATE (5-7) Prescribed by: YANET SANTACRUZ on 10/29/20 173 Ibuprofen (Motrin) 800 Mg Tab, 800 MG PO Q6HR, (Reported) Entered as Reported by: DIYA ROBBINS on 09/30/12 1317 Ibuprofen (Ibuprofen) 800 Mg Tablet, 800 MG PO Q8H PRN for PAIN Prescribed by: MAXINE GARZA on 10/20/20 1832 Ibuprofen (Ibuprofen) 800 Mg Tablet, 800 MG PO Q8H PRN for PAIN Prescribed by: MAXINE GARZA on 04/11/21 1752 Review of Systems Review of Systems Constitutional: see HPI Eyes: See HPI Ears: See HPI Nose: see HPI Mouth: see HPI Throat: see HPI Respiratory: see HPI Cardiovascular: see HPI Gastrointestinal: see HPI Past Rcbyjlc-Jxvihh-Izbkvf Hx Patient Social History Tobacco Use?: Yes Use of E-Cig and/or Vaping dev: No Substance use?: No Alcohol Use?: No Immunizations Up To Date First/Initial COVID19 Vaccinat: 2020 Second COVID19 Vaccination Chandra: 2020 Seasonal Allergies Seasonal Allergies: No Past Medical History Surgeries: Yes (C/S x6, Umbilical herniorrhaphy ) Abdominal, Section, Tubal Ligation Respiratory: No Cardiac: No Neurological: No Reproductive Disorders: 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 oz. kg; 48.00 BMI Method: General Appearance: mild distress Eyes: bilateral eye normal inspection, bilateral eye PERRL Nose: other Mouth/Throat: dental tenderness Neck: non-tender, full range of motion, supple Cardiovascular: normal peripheral pulses, regular rate, rhythm Respiratory: lungs clear Progress/Results/Core Measures Results/Orders My Orders Orders - LUIS BONILLA DO Ibuprofen Tablet (Motrin Tablet) (09/17/21 17:30) Amoxicillin/Clavulanate Tablet (Augmenti (09/17/21 17:30) Vital Signs/I&O 09/17/21 17:18 Temp 35.7 Pulse 90 Resp 16 B/P (MAP) 157/89 (111) Pulse Ox 97 O2 Delivery Room Air Blood Pressure Mean: 111 Departure Communication (Admissions) Antibiotics and pain medication provided. Recommendations are to follow-up with dentist of choice DANISH Impression Primary Impression: Pain, dental Disposition: 01 HOME, SELF-CARE Condition: Stable Departure-Patient Inst. Decision time for Depature: 17:36 Referrals: SELFDARIA MD (PCP/Family) Primary Care Physician Patient Instructions: Dental Pain Add. Discharge Instructions: Please take newly prescribed medications as directed. Follow-up with your PCP in 2 to 3 days for reevaluation. Return to the ED if new or worsening symptoms peer All discharge instructions reviewed with patient and/or family. Voiced understanding. Scripts Tramadol HCl (Tramadol HCl) 50 Mg Tablet 50 MG PO Q6H, #12 TAB Prov: LUIS BONILLA DO 09/17/21 Penicillin V Potassium (Penicillin V Potassium) 500 Mg Tablet 500 MG PO QID, #40 TAB Prov: LUIS BONILLA DO 09/17/21 LUIS BONILLA DO Sep 17, 2021 17:38
== END 2021-09-17 17:42 | disposition home or self-care (01) ==
LOC: EDUNIT# 17:11 → ER FS 17:12
DX: K08.89 Other specified disorders of teeth and supporting structures (principal); Z72.0 Tobacco use
CPT/HCPCS: 99283

== ENCOUNTER 2021-09-24 21:24 | Emergency (ER) | payer MEDICAID ==
[~2021-09-24] VITALS: Ht 154.9 cm; Wt 116.3 kg
[~2021-09-24 21:24] MED LIST changes: +PENI500T PO; +TRAM50TA3 PO
--- NOTE | 2021-09-24 21:32 | ED Lower Extremity ---
General Chief Complaint: Lower Extremity Stated Complaint: FALL; LT ANKLE AND KNEE History of Present Illness Date Seen by Provider: Sep 24, 2021 Time Seen by Provider: 21:27 Initial Comments 31-year-old female presents following a fall. Patient reports she was carrying groceries slipped in the mud and fell on the concrete. Patient fell on her left knee. She complains of pain in the left knee diffusely and in the patella along with posterior left ankle. Patient is able to ambulate but with pain. Patient has full range of motion with pain. She denies any other fall. She does have a small abrasion on the and to your portion of her knee. No other systemic complaints. Allergies and Home Medications Allergies Coded Allergies: No Known Drug Allergies (Unverified , 09/30/12) Patient Home Medication List Home Medication List Reviewed: Yes No Active Prescriptions or Reported Meds Review of Systems Constitutional: No chills, No fever Respiratory: no symptoms reported Cardiovascular: no symptoms reported Gastrointestinal: no symptoms reported Genitourinary: no symptoms reported Musculoskeletal: see HPI Skin: see HPI Psychiatric/Neurological: No Symptoms Reported Past Kpnqghq-Crjtab-Orwbxj Hx Immunizations Up To Date First/Initial COVID19 Vaccinat: 2020 Second COVID19 Vaccination Chandra: 2020 Seasonal Allergies Seasonal Allergies: No Past Medical History Surgeries: Yes (C/S x6, Umbilical herniorrhaphy ) Abdominal, Section, Tubal Ligation Respiratory: No Cardiac: No Neurological: No Reproductive Disorders: Yes (2005 abnormal pap ) 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 oz. kg; 48.00 BMI Method: General Appearance: mild distress HEENT: PERRL/EOMI Cardiovascular: normal peripheral pulses, regular rate, rhythm Respiratory: lungs clear, normal breath sounds, no respiratory distress Gastrointestinal: non tender, soft Hips: bilateral hip non-tender Legs: bilateral leg non-tender Knees: left knee pain, left knee soft tissue tenderness, left knee swelling Ankles: left ankle soft tissue tenderness Neurologic/Psychiatric: alert, normal mood/affect, oriented x 3 Progress/Results/Core Measures Results/Orders My Orders Orders - NAPOLEON VIRAMONTES DO Ankle 3 View Left (09/24/21 21:32) Knee 4 View Or > Left (09/24/21 21:32) Vital Signs/I&O 09/24/21 21:28 Temp 35.9 Pulse 92 Resp 14 B/P (MAP) 144/90 (108) Pulse Ox 97 O2 Delivery Room Air Diagnostic Imaging Diagonstic Imaging: Xray Plain Films/CT/US/NM/MRI: knee Comments No acute fracture dislocation noted Reviewed: Reviewed by Me Diagonstic Imaging: Xray Plain Films/CT/US/NM/MRI: ankle Comments No acute fracture or dislocation noted Reviewed: Reviewed by Me Departure Impression Primary Impression: Contusion of knee Qualified Codes: S80.02XA - Contusion of left knee, initial encounter Additional Impression: Sprain of left ankle Qualified Codes: S93.402A - Sprain of unspecified ligament of left ankle, initial encounter Disposition: 01 HOME, SELF-CARE Condition: Stable Departure-Patient Inst. Referrals: SELFDARIA MD (PCP/Family) Primary Care Physician Patient Instructions: Ankle Sprain ED, Contusion (DC) Add. Discharge Instructions: Cullen wrap to left knee as needed for pain Ice for 20 minutes 3-4 times daily left knee Tylenol or ibuprofen as needed for 4% topical lidocaine with menthol to left knee as needed for pain Follow-up with your primary care provider in 10 days if symptoms have not improved for repeat x-ray and evaluation All discharge instructions reviewed with patient and/or family. Voiced unders tanding. Scripts No Active Prescriptions or Reported Meds NAPOLEON VIRAMONTES DO Sep 24, 2021 21:32
[2021-09-24] MEDS ORDERED: BUPR100T15 PO (21:36)
[2021-09-24 22:00] VITALS: BP 144/90
--- NOTE | 2021-09-24 22:02 | Diagnostic Imaging Report ---
INDICATION: Fall with right ankle pain. EXAMINATION: AP, oblique and lateral views of the right ankle were obtained. FINDINGS: There is a mildly prominent plantar calcaneal enthesophyte. No acute fracture or dislocation is identified. No abnormal lytic or sclerotic focus is seen, and there is no radiopaque foreign body. IMPRESSION: No acute abnormality. Dictated by: Dictated on workstation # [id number]
--- NOTE | 2021-09-24 22:04 | Diagnostic Imaging Report ---
INDICATION: Fall with left knee injury and pain. EXAMINATION: AP, oblique, lateral and sunrise views of the left knee were obtained. FINDINGS: There is mild lateral deviation of the patella on the sunrise image. No acute fracture or dislocation is identified. No abnormal lytic or sclerotic focus is seen, and there is no radiopaque foreign body. IMPRESSION: Possible lateral deviation of the patella without acute osseous abnormality or joint effusion. Dictated by: Dictated on workstation # [id number]
== END 2021-09-24 22:00 | disposition home or self-care (01) ==
LOC: EDUNIT# 21:24 → ER FS 21:26
DX: S93.402A Sprain of unspecified ligament of left ankle, initial encounter (principal); S80.02XA Contusion of left knee, initial encounter; W01.0XXA Fall on same level from slipping, tripping and stumbling without subsequent striking against object, initial encounter
CPT/HCPCS: 73564; 73610

== ENCOUNTER 2022-04-02 16:25 | Emergency (ER) | payer MEDICAID ==
[~2022-04-02] VITALS: Ht 154.9 cm; Wt 116.3 kg
[~2022-04-02 16:25] MED LIST changes: +BUPR100T15 PO
--- NOTE | 2022-04-02 16:40 | ED EENT ---
History of Present Illness General Chief Complaint: Dental Problems/Pain Stated Complaint: TOOTH PAIN Source: patient History of Present Illness Date Seen by Provider: Apr 02, 2022 Time Seen by Provider: 16:28 Initial Comments 31-year-old female presenting with complaints of dental pain to the right side of her mouth. She has a bad molar on the bottom and on the top. She has pain that started last night while she was drinking coffee. She has had problems with her teeth in the past but lost her job that had dental insurance and has not been able to afford to go back to the dentist. She has been alternating Tylenol and ibuprofen for pain control but took her last ibuprofen pill earlier today. She denies any fever, chills, nausea, vomiting, headache. Chest pain to the right side of her face going back to her ear and neck. Timing/Duration: abrupt Severity: severe Location: dental Prearrival Treatment: over the counter meds Modifying Factors: Worse With Other (Eating and drinking makes it worse) Associated Symptoms: No change in hearing, No cough, No drooling, No ear drainage; facial pain/swelling; No fever, No malaise, No nasal congestion/drainage, No poor fluid intake, No poor solids intake, No sinus infection, No sore throat; tooth pain; No voice change Allergies and Home Medications Allergies Coded Allergies: No Known Drug Allergies (Unverified , 09/30/12) Patient Home Medication List Home Medication List Reviewed: Yes Amoxicillin/Potassium Clav (Amox Tr-K Clv 875-125 mg Tab) 875 Mg-125 Mg Tablet, 1 EACH PO BID Prescribed by: MAXINE GARZA on 04/02/22 164 Hydrocodone/Acetaminophen (Hydrocodone-Acetamin 5-325 mg) 5 Mg-325 Mg Tablet, 1 TAB PO Q8H PRN for PAIN-SEVERE (8-10) Prescribed by: MAXINE GARZA on 04/02/22 164 Ibuprofen (Ibuprofen) 800 Mg Tablet, 800 MG PO Q8H PRN for PAIN Prescribed by: MAXINE GARZA on 04/02/22 1641 Review of Systems Review of Systems Constitutional: No chills, No fever Eyes: No Symptoms Reported Ears: No Symptoms Reported Nose: no symptoms reported Mouth: see HPI Throat: no symptoms reported Respiratory: no symptoms reported Cardiovascular: no symptoms reported Gastrointestinal: no symptoms reported Musculoskeletal: no symptoms reported Skin: no symptoms reported Neurological: No Symptoms Reported Past Hiuxuzc-Roqpdv-Qmqqbk Hx Patient Social History Tobacco Use?: Yes Use of E-Cig and/or Vaping dev: No Substance use?: No Alcohol Use?: No Immunizations Up To Date First/Initial COVID19 Vaccinat: 2020 Second COVID19 Vaccination Chandra: 2020 Seasonal Allergies Seasonal Allergies: No Past Medical History Surgery/Hospitalization HX: Tubal ligation, x 6, D&C, Abd hernia Surgeries: Yes (C/S x6, Umbilical herniorrhaphy ) Abdominal, Section, Tubal Ligation Respiratory: No Cardiac: No Neurological: No Reproductive Disorders: 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 oz. kg; 48.00 BMI Method: General Appearance: WD/WN, no apparent distress Eyes: bilateral eye normal inspection, bilateral eye PERRL, bilateral eye EOMI Mouth/Throat: dental tenderness, other (missing teeth from prior extractions and widespread dental decay) Neck: full range of motion, supple Cardiovascular: normal peripheral pulses, regular rate, rhythm Respiratory: chest non-tender, lungs clear, normal breath sounds Neurologic/Psychiatric: alert, oriented x 3 Skin: normal color, warm/dry Progress/Results/Core Measures Results/Orders Vital Signs/I&O 04/02/22 16:29 Temp 35.8 Pulse 89 Resp 16 B/P (MAP) 136/73 (94) Pulse Ox 98 O2 Delivery Room Air Progress Progress Note : Progress Note treat pain and likely infection with augmentin, ibuprofen alternating with acetaminophen, and for severe pain hydrocodone/acetaminophen. Check with dental clinic for follow up as soon as possible. Departure Impression Primary Impression: Pain due to dental caries Additional Impression: Dental abscess Disposition: 01 HOME, SELF-CARE Condition: Stable Departure-Patient Inst. Decision time for Depature: 16:35 Referrals: SELF,DARIA LEVINE (PCP/Family) Primary Care Physician Patient Instructions: Tooth Abscess ED, Tooth Decay ED, Dental Pain ED Add. Discharge Instructions: Take antibiotics to treat for infection with the teeth. Continue to alternate Ibuprofen 800 mg with Acetaminophen 650 mg to help with pain. For severe pain may take Hydrocodone/Acetaminophen 5/325 mg pills, but keep the amount of Acetaminophen that you take in 24 hours under 4,000 mg. Follow up with Dentist as soon as possible for definitive care of your teeth. The [facility] can be reached by calling [phone], and it is located at [address] [place] [id number] If you go to [facility] you could look up information about the dental services available. They have clinics in [facility]. All discharge instructions reviewed with patient and/or family. Voiced understanding. Scripts Hydrocodone/Acetaminophen (Hydrocodone-Acetamin 5-325 mg) 5 Mg-325 Mg Tablet 1 TAB PO Q8H PRN for PAIN-SEVERE (8-10) for 5 Days, #15 TAB 0 Refills Prov: MAXINE GARZA MD 04/02/22 Ibuprofen (Ibuprofen) 800 Mg Tablet 800 MG PO Q8H PRN for PAIN for 10 Days, #30 TAB 0 Refills Prov: MAXINE GARZA MD 04/02/22 Amoxicillin/Potassium Clav (Amox Tr-K Clv 875-125 mg Tab) 875 Mg-125 Mg Tablet 1 EACH PO BID for Dental infection for 10 Days, #20 TAB 0 Refills Prov: MAXINE GARZA MD 04/02/22 Work/School Note: Work Release Form Date Seen in the Emergency Department: Apr 02, 2022 Return to Work: Apr 03, 2022 Restrictions: No Restrictions MAXINE GARZA MD Apr 02, 2022 16:40
[2022-04-02] MEDS ORDERED: AMOX1TAB12 PO (16:41)
[2022-04-02] MEDS ORDERED: IBUP-1780 PO (16:41)
[2022-04-02] MEDS ORDERED: ACHD5005 PO (16:41)
[2022-04-02 16:45] VITALS: BP 136/73
[2022-04-02] MEDS ORDERED: CLIN-144 PO (20:37)
[2022-04-02] MEDS ORDERED: PRD20T PO (20:37)
== END 2022-04-02 16:43 | disposition home or self-care (01) ==
LOC: EDUNIT# 16:25 → ER FS 16:26
DX: K02.9 Dental caries, unspecified (principal); K04.7 Periapical abscess without sinus
CPT/HCPCS: 99282

== ENCOUNTER 2022-04-02 19:34 | Emergency (ER) | payer MEDICAID ==
[~2022-04-02 19:34] MED LIST changes: +AMOX1TAB12 PO
[2022-04-02] MEDS ORDERED: diphenhydrAMINE 50 MG/ML INJ (BENADRYL) IVP STA (19:54)
[2022-04-02] MEDS ORDERED: methylPREDNISolone 125 MG (Solu-MEDROL) VIAL IVP STA (19:54)
[2022-04-02] MEDS ORDERED: FAMOTIDINE 20 MG (PEPCID) TABLET PO STA (19:54)
[2022-04-02] MEDS ORDERED: CLIN-144 PO (20:37)
[2022-04-02] MEDS ORDERED: PRD20T PO (20:37)
--- NOTE | 2022-04-02 20:37 | ED Integumentary General ---
General Chief Complaint: Allergic Reaction Stated Complaint: ALLERGIC REACTION Nursing Triage Note: Pt states she was seen this afternoon here for a dental infection. Pt was prescribed Augmentin and thinks she is having an allergic reaction. Pt presents with hives and feels like her throat is closing Source: patient History of Present Illness Date Seen by Provider: Apr 02, 2022 Time Seen by Provider: 19:47 Initial Comments 31-year-old female presenting approximately an hour after taking first dose of Augmentin. She started having itching and hives and felt like her throat was swelling. She then remembered that she recently had taken penicillin for dental infection that had caused similar reaction but not as severe. She had checked with her family and found out on her mother side there is a strong family history of penicillin allergy. She has taken penicillin medications previously without difficulty until this most recent prescription and tonight. She does not have any wheezing and is not coughing. Her voice is clear and she is speaking without difficulty. She did not try taking any medicine at home prior to coming to the emergency department. Timing/Duration: just prior to arrival Severity: moderate Location: generalized Possible Cause: medications (Penicillin-based) Modifying Factors: worse with scratching Associated Symptoms: No blisters, No change in skin texture, No edema, No fever, No flushing, No headache; hives; No jaundice, No malaise, No nasal congestion, No numbness, No pallor, No paresthesia, No petechiae; rash (Hives); No sore throat, No swelling/mass/lumps, No tingling Allergies and Home Medications Allergies Coded Allergies: Penicillins (Verified Allergy, Intermediate, Rash, 04/02/22) Hives and sensation of swelling in throat Patient Home Medication List Home Medication List Reviewed: Yes Clindamycin HCl (Clindamycin HCl) 300 Mg Capsule, 300 MG PO QID Prescribed by: MAXINE GARZA on 04/02/222036 Hydrocodone/Acetaminophen (Hydrocodone-Acetamin 5-325 mg) 5 Mg-325 Mg Tablet, 1 TAB PO Q8H PRN for PAIN-SEVERE (8-10) Prescribed by: MAXINE GARZA on 04/02/22 164 Ibuprofen (Ibuprofen) 800 Mg Tablet, 800 MG PO Q8H PRN for PAIN Prescribed by: MAXINE GARZA on 04/02/22 164 Prednisone (Prednisone) 20 Mg Tab, 40 MG PO DAILY Prescribed by: MAXINE GARZA on 04/02/222036 Discontinued Medications Amoxicillin/Potassium Clav (Amox Tr-K Clv 875-125 mg Tab) 875 Mg-125 Mg Tablet, 1 EACH PO BID Prescribed by: MAXINE GARZA on 04/02/22 1641 Review of Systems Review of Systems Constitutional: No chills, No fever EENTM: other (Dental pain ) Respiratory: see HPI Cardiovascular: no symptoms reported Gastrointestinal: no symptoms reported Genitourinary: no symptoms reported Musculoskeletal: no symptoms reported Skin: see HPI, rash (Diffuse urticaria) Psychiatric/Neurological: Anxiety Past Mjjeflt-Aufcgp-Uzgkiu Hx Patient Social History Tobacco Use?: No Use of E-Cig and/or Vaping dev: No Substance use?: No Alcohol Use?: No Pt feels they are or have been: No Immunizations Up To Date First/Initial COVID19 Vaccinat: 2020 Second COVID19 Vaccination Chandra: 2020 Third COVID19 Vaccination Date: 2020 Seasonal Allergies Seasonal Allergies: No Past Medical History Surgery/Hospitalization HX: Tubal ligation, x 6, D&C, Abd hernia Surgeries: Yes (C/S x6, Umbilical herniorrhaphy ) Abdominal, Section, Tubal Ligation Respiratory: No Cardiac: No Neurological: No Reproductive Disorders: Yes (2005 abnormal pap ) [employer]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 Genitourinary: No Gastrointestinal: No Musculoskeletal: Yes (Hx fx R foot) Fractures Endocrine: No HEENT: No Cancer: No Psychosocial: No Integumentary: No Blood Disorders: No Physical Exam Vital Signs Vital Signs - First Documented 04/02/22 19:40 Temp 36.4 Pulse 105 Resp 20 B/P (MAP) 112/80 (91) Pulse Ox 98 O2 Delivery Room Air Capillary Refill : Less Than 3 Seconds General Appearance: WD/WN, moderate distress, obese HEENT: PERRL/EOMI, normal ENT inspection, pharynx normal, other (No stridor or obvious swelling of the posterior pharynx) Neck: non-tender, full range of motion, supple, normal inspection Cardiovascular: normal peripheral pulses, regular rate, rhythm Respiratory: chest non-tender, lungs clear, normal breath sounds, no respiratory distress, no accessory muscle use; No stridor Extremities: normal range of motion, non-tender, normal capillary refill Neurologic/Psychiatric: alert, oriented x 3 Skin: warm/dry, rash (Diffuse urticarial rash) Progress/Results/Core Measures Results/Orders My Orders Orders - MAXINE GARZA MD Methylprednisolone Sod Succ (Solu-Medrol (04/02/22 19:54) Diphenhydramine Injection (Benadryl Inje (04/02/22 19:54) Famotidine Tablet (Pepcid Tablet) (04/02/22 19:54) Ed Iv/Invasive Line Start (04/02/22 19:54) Vital Signs/I&O 04/02/22 04/02/22 19:40 20:40 Temp 36.4 Pulse 105 77 Resp 20 18 B/P (MAP) 112/80 (91) 96/71 Pulse Ox 98 98 O2 Delivery Room Air Room Air Blood Pressure Mean: 91 Progress Progress Note #1: Progress Note Administer IV Solu-Medrol with Benadryl and Pepcid. Counseled patient on avoiding penicillins in the future. We will change her Augmentin prescription to clindamycin to finish out course of antibiotics for dental infection. Progress Note #2: Progress Note Medications had improvement on the patient's symptoms. She is having decreased hives and itching. Counseled on continued medication and follow-up and return precautions. Departure Impression Primary Impression: Allergic reaction caused by a drug Qualified Codes: T78.40XA - Allergy, unspecified, initial encounter Additional Impression: Hives Disposition: 01 HOME, SELF-CARE Condition: Stable Departure-Patient Inst. Decision time for Depature: 20:35 Referrals: DARIA MARCOS MD (PCP/Family) Primary Care Physician Patient Instructions: Allergic Reaction ED Add. Discharge Instructions: Stop taking the Amoxicillin/Clavunic Acid (Augmentin) Take Clindamycin as the antibiotic to treat dental infection. Steroid and antihistamines to help with rash and itching over the next few days until the Penicillin is out of your system. All discharge instructions reviewed with patient and/or family. Voiced understanding. Scripts Prednisone (Prednisone) 20 Mg Tab 40 MG PO DAILY for allergic reaction for 3 Days, #6 TAB 0 Refills Prov: MAXINE GARZA MD 04/02/22 Clindamycin HCl (Clindamycin HCl) 300 Mg Capsule 300 MG PO QID for dental infection for 10 Days, #40 CAP 0 Refills Prov: MAXINE GARZA MD 04/02/22 MAXINE GARZA MD Apr 02, 2022 20:37
[2022-04-02 20:40] VITALS: BP 96/71
== END 2022-04-02 20:41 | disposition home or self-care (01) ==
LOC: EDUNIT# 19:34 → ER FS 19:35
DX: L50.0 Allergic urticaria (principal); T36.0X5A Adverse effect of penicillins, initial encounter; Z88.0 Allergy status to penicillin

== ENCOUNTER 2022-07-27 10:06 | Emergency (ER) | payer MEDICAID ==
[~2022-07-27 10:06] MED LIST changes: +CLIN-144 PO; +PRD20T PO
--- NOTE | 2022-07-27 10:22 | ED General ---
General Stated Complaint: DIARRHEA; NAUSEA; SYNCOPE Source of Information: Patient, EMS Exam Limitations: No Limitations (ANJELICA HANSEN) History of Present Illness Date Seen by Provider: Jul 27, 2022 Time Seen by Provider: 10:06 Initial Comments This is a 31yo F with pmhx of obesity who was brought by EMS following a fall this morning [id number]. Pt was standing at [facility] when she had a syncopal episode and hit her head. When EMS arrived, BP 67/37, AC94o-14x, blood sugar 138. BP at 116/72 following approximately 200ml IVF. Patient was able to stand on her own following assessment by EMS at [facility]. Patient does not vividly remember the fall. First memory is taking her card out of her wallet, next memory was waking up on the ground. Patient has been feeling unwell for the past 2-3 days with GI symptoms of nausea and diarrhea. She endorses headache that started last night before the fall. Individuals in her household have had GI symptoms including nausea and vomiting. Patient received 4mg Zofran by EMS and currently does not endorse nausea. She does endorse neck pain. Pt is alert and oriented to person, place, and date upon arrival to the ED. Denies vertigo, vomiting, fevers, chills, SOA, chest pain. Patient actively smokes cigarettes and drinks alcohol. Denies use of vaping, marijuana, or illicit drug use. Pt is not on any reported medications. Denies any known drug allergies. She reports a previous tubal ligation. Timing/Duration: Other (Fall on morning of ) Severity: Moderate Associated Systoms: No Chest Pain, No Cough, No Diaphoresis, No Fever/Chills, No Headaches; Malaise, Nausea/Vomiting (Endorses nausea, denies vomiting); No Shortness of Air; Syncope (ANJELICA HANSEN) Initial Comments Patient experienced lightheadedness prior to the incident but denied any chest pain, shortness of breath, or palpitations. Patient's daughter was with her at the time. Daughter reports that patient laid her head on the counter and then lost consciousness and fell to the floor. She denies witnessing any convulsive activity. (NATIVIDAD LAKE MD) Allergies and Home Medications Allergies Coded Allergies: Penicillins (Verified Allergy, Intermediate, Rash, 04/02/22) Hives and sensation of swelling in throat Patient Home Medication List Home Medication List Reviewed: Yes (NATIVIDAD LAKE MD) Clindamycin HCl (Clindamycin HCl) 300 Mg Capsule, 300 MG PO QID Prescribed by: MAXINE GARZA on 04/02/222036 Hydrocodone/Acetaminophen (Hydrocodone-Acetamin 5-325 mg) 5 Mg-325 Mg Tablet, 1 TAB PO Q8H PRN for PAIN-SEVERE (8-10) Prescribed by: MAXINE GARZA on 04/02/22 164 Ibuprofen (Ibuprofen) 800 Mg Tablet, 800 MG PO Q8H PRN for PAIN Prescribed by: MAXINE GARZA on 04/02/22 164 Ondansetron (Ondansetron Odt) 4 Mg Tab.rapdis, 4 MG SL Q4H PRN for NAUSEA/VOMITING Prescribed by: NATIVIDAD FERRELL on 07/27/22 1125 Prednisone (Prednisone) 20 Mg Tab, 40 MG PO DAILY Prescribed by: MAXINE GARZA on 04/02/222036 Review of Systems Review of Systems Constitutional: No dizziness; malaise (x2-3 days) EENTM: no symptoms reported Respiratory: no symptoms reported Cardiovascular: no symptoms reported Gastrointestinal: diarrhea, nausea (received Zofran by EMS and not currently having symptoms); No vomiting Genitourinary: no symptoms reported Musculoskeletal: other (endorses neck pain) (ANJELICA HANSEN) Past Clqcwvi-Cyjvnp-Oenufe Hx Immunizations Up To Date First/Initial COVID19 Vaccinat: 2020 Second COVID19 Vaccination Chandra: 2020 Third COVID19 Vaccination Date: 2020 (ANJELICA HANSEN) Seasonal Allergies Seasonal Allergies: No (ANJELICA HANSEN) Past Medical History Surgery/Hospitalization HX: Tubal ligation, x 6, D&C, Abd hernia Surgeries: Yes (C/S x6, Umbilical herniorrhaphy ) Abdominal, Section, Tubal Ligation Respiratory: No Cardiac: No Neurological: No Reproductive Disorders: Yes (2005 abnormal pap ) 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 Genitourinary: No Gastrointestinal: No Musculoskeletal: Yes (Hx fx R foot) Fractures Endocrine: No HEENT: No Cancer: No Psychosocial: No Integumentary: No Blood Disorders: No (ANJELICA HANSEN) Physical Exam Vital Signs Vital Signs - First Documented 07/27/22 10:06 Temp 36.5 Pulse 94 Resp 20 B/P (MAP) 113/65 (81) Pulse Ox 99 O2 Delivery Room Air (NATIVIDAD LAKE MD) Vital Signs Capillary Refill : (ANJELICA HANSEN) Height, Weight, BMI Height: '" Weight: lbs. oz. kg; 48.00 BMI Method: General Appearance: No Apparent Distress, WD/WN, Obese HEENT: Other (Tongue dry) Neck: Normal Inspection, Limited Range of Motion, Other (Tenderness of the ce rvical spine and superior thoracic spine) Respiratory: Chest Non Tender, Lungs Clear, Normal Breath Sounds, No Accessory Muscle Use, No Respiratory Distress Cardiovascular: Regular Rate, Rhythm, No Edema, No Murmur Gastrointestinal: Normal Bowel Sounds, Non Tender, Soft Extremity: Normal Capillary Refill, Normal Inspection, Non Tender Neurologic/Psychiatric: Alert, Oriented x3 (ANJELICA HANSEN) Comments Exam above was performed by me and dictated to Anjelica Hansen, MS 4. Additionally patient had tenderness over the lower cervical spine and upper thoracic spine. (NATIVIDAD LAKE MD) Progress/Results/Core Measures Suspected Sepsis SIRS Temperature: Pulse: Respiratory Rate: Laboratory Tests 07/27/22 10:25: White Blood Count 9.2 Blood Pressure / Mean: Laboratory Tests 07/27/22 10:25: Platelet Count 310 (ANJELICA HANSEN) Results/Orders Lab Results Laboratory Tests Test 07/27/22 10:25 Range/Units White Blood Count 9.2 4.3-11.0 10^3/uL Red Blood Count 4.67 3.80-5.11 10^6/uL Hemoglobin 12.9 11.5-16.0 g/dL Hematocrit 40 35-52 % Mean Corpuscular Volume 87 80-99 fL Mean Corpuscular Hemoglobin 28 25-34 pg Mean Corpuscular Hemoglobin Concent 32 32-36 g/dL Red Cell Distribution Width 13.7 10.0-14.5 % Platelet Count 310 130-400 10^3/uL Mean Platelet Volume 10.3 9.0-12.2 fL Immature Granulocyte % (Auto) 0 % Neutrophils (%) (Auto) 71 42-75 % Lymphocytes (%) (Auto) 21 12-44 % Monocytes (%) (Auto) 6 0-12 % Eosinophils (%) (Auto) 2 0-10 % Basophils (%) (Auto) 0 0-10 % Neutrophils # (Auto) 6.6 1.8-7.8 10^3/uL Lymphocytes # (Auto) 1.9 1.0-4.0 10^3/uL Monocytes # (Auto) 0.5 0.0-1.0 10^3/uL Eosinophils # (Auto) 0.2 0.0-0.3 10^3/uL Basophils # (Auto) 0.0 0.0-0.1 10^3/uL Immature Granulocyte # (Auto) 0.0 0.0-0.1 10^3/uL Sodium Level 139 135-145 MMOL/L Potassium Level 3.7 3.6-5.0 MMOL/L Chloride Level 106 98-107 MMOL/L Carbon Dioxide Level 20 L 21-32 MMOL/L Anion Gap 13 5-14 MMOL/L Blood Urea Nitrogen 10 7-18 MG/DL Creatinine 0.69 0.60-1.30 MG/DL Estimat Glomerular Filtration Rate 117 BUN/Creatinine Ratio 14 Glucose Level 134 H 70-105 MG/DL Calcium Level 8.3 L 8.5-10.1 MG/DL Magnesium Level 2.1 1.6-2.4 MG/DL Influenza Type A (RT-PCR) Not Detected Not Detecte Influenza Type B (RT-PCR) Not Detected Not Detecte SARS-CoV-2 RNA (RT-PCR) Not Detected Not Detecte (NATIVIDAD LAKE MD) My Orders Orders - NATIVIDAD LAKE MD Basic Metabolic Panel (07/27/22 10:13) Cbc With Automated Diff (07/27/22 10:13) Magnesium (07/27/22 10:13) Covid 19 Inhouse Test (07/27/22 10:13) Influenza A And B By Pcr (07/27/22 10:13) Ct Head/Cervical Spine Wo (07/27/22 10:13) Ct Thoracic Spine Wo (07/27/22 10:13) Lactated Ringers (Lr 1000 Ml Iv Solution (07/27/22 11:15) (NATIVIDAD LAKE MD) Medications Given in ED (NATIVIDAD LAKE MD) Vital Signs/I&O 07/27/22 07/27/22 10:06 12:09 Temp 36.5 36.5 Pulse 94 85 Resp 20 20 B/P (MAP) 113/65 (81) 104/58 Pulse Ox 99 99 O2 Delivery Room Air Room Air 07/28/22 00:00 Intake Total 1000 ml Balance 1000 ml (NATIVIDAD LAKE MD) Vital Signs/I&O Capillary Refill : (ANJELICA HANSEN) Progress Note : Progress Note Patient continued to receive IV hydration. In total she received approximately 1500 mL in the fluid boluses. She had no further hypotension. She felt much improved after hydration. She had no further episodes of diarrhea, and nausea resolved. Labs were evaluated including CBC and BMP. Viral swabs for COVID and influenza were negative. CT scans of the head, cervical spine, and thoracic spine were obtained. Reports were reviewed. No significant injuries were identified. Patient was ultimately discharged in improved condition. Based on clinical presentation and history, patient likely had a syncopal episode due to hypovolemia from recent illness with diarrhea and poor oral intake. (NATIVIDAD LAKE MD) Diagnostic Imaging Diagonstic Imaging: CT Plain Films/CT/US/NM/MRI: c-spine, head Comments NAME: JACQUES WASHINGTON [facility] REC#: [id number] PT STATUS: DEP ER : 1990 PHYSICIAN: NATIVIDAD LAKE MD ADMIT DATE: 07/27/22/ER FS Signed Date of Exam:07/27/22 CT HEAD/CERVICAL SPINE WO CLINICAL INDICATION: Patient with syncopal episode today. Patient hit head. Patient now has headache and neck pain. EXAM: Head CT without IV contrast with sagittal and coronal reformations. Axial CT scan of the cervical spine with sagittal and coronal reformations. Auto Exposure Controls were utilized during the CT exam to meet ALARA standards for radiation dose reduction. COMPARISON: None. FINDINGS: Head CT: There is no evidence of acute cerebral infarct, intracranial hemorrhage, or gross mass effect. The brain parenchymal volume appears appropriate for patient's age. There is normal carter-white matter distinction. There is no significant midline shift or herniation. There is no evidence of hydrocephalus. The basal cisterns are unremarkable. The skull, extracranial soft tissue, and orbits are unremarkable. There is minimal mucosal thickening involving the left maxillary sinus and mild mucosal thickening involving the left ethmoid sinus region. Temporal bones show no significant abnormality. Cervical spine: There is no acute cervical spine fracture or dislocation. There is straightening of the cervical spine posture. There is no significant neck soft tissue abnormality. The visualized upper lung vera are clear. IMPRESSION: 1: There is no evidence of acute intracranial process. There is no skull fracture. 2: There is no acute cervical spine fracture or dislocation. Dictated by: Dictated on workstation # [id number] Dict: 07/27/22 1045 Trans: 07/27/221726 AS6 [id number] Interpreted by: NIKHIL WRIGHT MD Electronically signed by: NIKHIL WRIGHT MD 07/27/221726 Diagonstic Imaging: CT Plain Films/CT/US/NM/MRI: other (Thoracic spine) Comments NAME: JACQUES WASHINGTON [facility] REC#: [id number] PT STATUS: DEP ER : 1990 PHYSICIAN: NATIVIDAD LAKE MD ADMIT DATE: 07/27/22/ER FS Signed Date of Exam:07/27/22 CT THORACIC SPINE WO Indication: Patient with syncopal episode today. Patient hit head and now has headache, neck pain and upper back pain. Exam: Axial CT scan of the thoracic spine performed without IV contrast. Sagittal and coronal reformations were performed. Bone and soft tissue windows were created. Auto Exposure Controls were utilized during the CT exam to meet ALARA standards for radiation dose reduction. Comparison: None. Findings: There is no acute thoracic fracture or dislocation. The thoracic spine has normal alignment. There are small degenerative spurs involving the thoracic spine anteriorly. The visualized extrathoracic soft tissue structures are unremarkable. There is mild atelectasis involving both lung bases. Impression: There is no acute thoracic spine fracture or dislocation. Dictated by: Dictated on workstation # [id number] Dict: 07/27/22 1052 Trans: 07/27/221726 ACB [id number] Interpreted by: NIKHIL WRIGHT MD Electronically signed by: NIKHIL WRIGHT MD 07/27/22 2387 (NATIVIDAD LAKE MD) Departure Impression Primary Impression: Syncope Qualified Codes: R55 - Syncope and collapse Additional Impressions: Minor head injury Qualified Codes: S09.90XA - Unspecified injury of head, initial encounter Neck pain Diarrhea Qualified Codes: R19.7 - Diarrhea, unspecified Nausea Disposition: 01 HOME, SELF-CARE Condition: Improved Departure-Patient Inst. Decision time for Depature: 11:23 (NATIVIDAD LAKE MD) Referrals: DARIA MARCOS MD (PCP) Primary Care Physician Patient Instructions: Minor Head Injury, Syncope (Fainting), Viral Gastroenteritis in Adults Add. Discharge Instructions: Start with a clear liquid diet and gradually advance your diet with small quantities of bland food as tolerated. Drink plenty of clear liquids. Avoid dairy products and fatty or greasy foods until diarrhea has been resolved for a few days. Use the Zofran (ondansetron) as prescribed for nausea or vomiting. You may take Tylenol (acetaminophen) and/or ibuprofen for aches and pains. Return to care if you have worsening symptoms despite following these instructions. Scripts Ondansetron (Ondansetron Odt) 4 Mg Tab.rapdis 4 MG SL Q4H PRN for NAUSEA/VOMITING, #10 TAB Prov: NATIVIDAD LAKE MD 07/27/22 Medical Student Attestation and Attending Note: I have personally interviewed and examined this patient along with Anjelica an, MS 4. I have reviewed student documentation including history, physical, and assessments. I agree with the documentation except where otherwise noted. (NATIVIDAD LAKE MD) Copy Copies To 1: DARIA MARCOS MD, ABRAHAM Jul 27, 2022 10:22 NATIVIDAD LAKE MD Jul 27, 2022 11:25
[2022-07-27 10:31] LABS: BASOPHILS % (AUTO) 0 % (0-10); EOSINOPHILS # (AUTO) 0.2 10^3/uL (0.0-0.3); EOSINOPHILS % (AUTO) 2 % (0-10); HEMATOCRIT 40 % (35-52); HEMOGLOBIN 12.9 g/dL (11.5-16.0); LYMPHOCYTES # (AUTO) 1.9 10^3/uL (1.0-4.0); LYMPHOCYTES % (AUTO) 21 % (12-44); MEAN CORPUSCULAR HEMOGLOBIN 28 pg (25-34); MEAN CORPUSCULAR HGB CONC 32 g/dL (32-36); MEAN CORPUSCULAR VOLUME 87 fL (80-99); MEAN PLATELET VOLUME 10.3 fL (9.0-12.2); MONOCYTES # (AUTO) 0.5 10^3/uL (0.0-1.0); MONOCYTES % (AUTO) 6 % (0-12); NEUTROPHILS # (AUTO) 6.6 10^3/uL (1.8-7.8); NEUTROPHILS % (AUTO) 71 % (42-75); PLATELET COUNT 310 10^3/uL (130-400); WHITE BLOOD COUNT 9.2 10^3/uL (4.3-11.0)
[2022-07-27 10:55] LABS: CALCIUM 8.3 MG/DL (8.5-10.1); CREATININE SERUM 0.69 MG/DL (0.60-1.30); MAGNESIUM 2.1 MG/DL (1.6-2.4); POTASSIUM 3.7 MMOL/L (3.6-5.0)
--- NOTE | 2022-07-27 10:56 | Diagnostic Imaging Report ---
CLINICAL INDICATION: Patient with syncopal episode today. Patient hit head. Patient now has headache and neck pain. EXAM: Head CT without IV contrast with sagittal and coronal reformations. Axial CT scan of the cervical spine with sagittal and coronal reformations. Auto Exposure Controls were utilized during the CT exam to meet ALARA standards for radiation dose reduction. COMPARISON: None. FINDINGS: Head CT: There is no evidence of acute cerebral infarct, intracranial hemorrhage, or gross mass effect. The brain parenchymal volume appears appropriate for patient's age. There is normal carter-white matter distinction. There is no significant midline shift or herniation. There is no evidence of hydrocephalus. The basal cisterns are unremarkable. The skull, extracranial soft tissue, and orbits are unremarkable. There is minimal mucosal thickening involving the left maxillary sinus and mild mucosal thickening involving the left ethmoid sinus region. Temporal bones show no significant abnormality. Cervical spine: There is no acute cervical spine fracture or dislocation. There is straightening of the cervical spine posture. There is no significant neck soft tissue abnormality. The visualized upper lung vera are clear. IMPRESSION: 1: There is no evidence of acute intracranial process. There is no skull fracture. 2: There is no acute cervical spine fracture or dislocation. Dictated by: Dictated on workstation # [id number]
[2022-07-27] MEDS ORDERED: LACTATED RINGERS 1,000 ML IV ONE (11:15)
--- NOTE | 2022-07-27 11:15 | Diagnostic Imaging Report ---
Indication: Patient with syncopal episode today. Patient hit head and now has headache, neck pain and upper back pain. Exam: Axial CT scan of the thoracic spine performed without IV contrast. Sagittal and coronal reformations were performed. Bone and soft tissue windows were created. Auto Exposure Controls were utilized during the CT exam to meet ALARA standards for radiation dose reduction. Comparison: None. Findings: There is no acute thoracic fracture or dislocation. The thoracic spine has normal alignment. There are small degenerative spurs involving the thoracic spine anteriorly. The visualized extrathoracic soft tissue structures are unremarkable. There is mild atelectasis involving both lung bases. Impression: There is no acute thoracic spine fracture or dislocation. Dictated by: Dictated on workstation # [id number]
[2022-07-27] MEDS ORDERED: ONDA4TAB11 SL (11:25)
[2022-07-27 12:09] VITALS: BP 104/58
== END 2022-07-27 12:07 | disposition home or self-care (01) ==
LOC: EDUNIT# 10:06 → ER FS 10:07
DX: S09.90XA Unspecified injury of head, initial encounter (principal); R55 Syncope and collapse; M54.2 Cervicalgia; R19.7 Diarrhea, unspecified; E66.9 Obesity, unspecified; F17.210 Nicotine dependence, cigarettes, uncomplicated; Z68.42 Body mass index [BMI] 45.0-49.9, adult; Z20.822 Contact with and (suspected) exposure to COVID-19; W18.30XA Fall on same level, unspecified, initial encounter; W22.8XXA Striking against or struck by other objects, initial encounter
CPT/HCPCS: 36415; 70450; 72125; 72128; 80048; 83735; 85025; 87636